=== PATIENT | male | born 1955 | race Two or more races ===

== ENCOUNTER 2021-03-16 12:39 | Outpatient (CLI) | payer BC ==
[~2021-03-16 12:39] MED LIST: NO HOME MEDS
[2021-03-16 13:16] LABS: BASOPHILS % (AUTO) 0.4 % (0.0-2.0); EOSINOPHILS % (AUTO) 1.2 % (0.0-6.0); HEMATOCRIT 40 % (39-51); HEMOGLOBIN 13.2 g/dL (13.5-17.5); LYMPHOCYTES # (AUTO) 1.6 K/uL (0.8-4.8); LYMPHOCYTES % (AUTO) 20.3 % (20.0-44.0); MEAN CORPUSCULAR HGB CONC 33 g/dl (31.0-36.0); MEAN CORPUSCULAR VOLUME 90 fL (80-96); MONOCYTES # (AUTO) 0.4 K/uL (0.1-1.30); MONOCYTES % (AUTO) 4.6 % (2.0-12.0); NEUTROPHILS # (AUTO) 5.7 K/uL (1.8-8.9); NEUTROPHILS % (AUTO) 73.5 % (43.0-81.0); PLATELET COUNT (AUTO) 153 K/uL (150-450); WHITE BLOOD COUNT (AUTO) 7.8 K/uL (4.3-11.0)
[2021-03-16 14:04] LABS: PROSTATE SPECIFIC ANTIGEN SCR 0.67 ng/mL (0.00-4.00); THYROID STIMULATING HORMONE 1.983 uIU/mL (0.358-3.74); URIC ACID 6.8 mg/dL (2.6-7.2)
[2021-03-16 14:13] LABS: ALBUMIN 4.2 g/dL (3.4-5.0); BILIRUBIN,TOTAL 0.4 mg/dL (0.2-1.0); CALCIUM, SERUM 9.3 mg/dL (8.5-10.1); CREATININE 1.1 mg/dL (0.6-1.3); POTASSIUM 4.3 mmol/L (3.5-5.1); TOTAL PROTEIN, SERUM 7.6 g/dL (6.4-8.2)
[2021-03-16 14:35] LABS: BILIRUBIN,URINE NEGATIVE (NEGATIVE); COLOR,URINE YELLOW (YELLOW); LEUKOCYTE ESTERASE ,URINE NEGATIVE (NEGATIVE); NITRITE, URINE NEGATIVE (NEGATIVE); PH,URINE 5.5 (5.0-8.0); PROTEIN,URINE NEGATIVE (NEGATIVE); UGLUCOSE NEGATIVE (NEGATIVE); UROBILINOGEN,URINE 0.2 EU/dL (0.2)
== END 2021-03-16 23:59 | disposition home or self-care (01) ==
LOC: LAB 12:39
PROVIDERS: ATTEND Legal Medicine
DX: Z00.00 Encounter for general adult medical examination without abnormal findings (principal); E03.9 Hypothyroidism, unspecified; E78.5 Hyperlipidemia, unspecified; D64.9 Anemia, unspecified; N18.9 Chronic kidney disease, unspecified; E55.9 Vitamin D deficiency, unspecified; R53.1 Weakness
CPT/HCPCS: 36415; 80053-TC; 80061-TC; 82306; 82607-TC; 82728-TC; 83540-TC; 84153-TC; 84402; 84403; 84439-TC; 84443-TC; 84550-TC; 85025-TC